=== PATIENT | female | born 1940 | race African-American/Black ===

== ENCOUNTER 2023-04-12 10:59 | Inpatient (IN) | payer OTHER, MEDICAID ==
[~2023-04-12] VITALS: Ht 144.8 cm; Wt 66.8 kg
[2023-04-12 12:11] LABS: Basophils # (auto) 0 10 ^3/uL (0-0.2); Basophils % (auto) 0.6 % (0.0-2.0); Eosinophils # (auto) 0.1 10 ^3/uL (0-0.8); Eosinophils % (auto) 1.2 % (0.0-7.0); Hematocrit 35.9 % (36.0-46.0); Hemoglobin 11.6 g/dL (12.2-16.2); Lymphocytes # (auto) 1.1 10 ^3/uL (0.4-5.4); Lymphocytes % (auto) 20.3 % (10.0-50.0); Mean Corpuscular Hgb Conc. 32.2 g/dL (32.0-36.0); Mean Corpuscular Volume 90.3 fL (80.0-100.0); Monocytes # (auto) 0.7 10 ^3/uL (0-1.3); Monocytes % (auto) 12.3 % (0.0-12.0); Neutrophils # (auto) 3.7 10 ^3/uL (1.6-8.6); Neutrophils % (auto) 65.6 % (37.0-80.0); Red Blood Cells 3.98 10^6/uL (4.0-5.20); Red Cell Distribution Width 15.1 % (11.8-14.3); White Blood Cell 5.6 10^3/uL (4.4-10.8)
[2023-04-12 12:22] LABS: Lactic Acid w/Reflex 2.8 mmol/L (0.4-2.0)
[2023-04-12 12:33] LABS: Alanine Aminotransferase 18 U/L (7-40); Albumin 4.3 g/dL (3.2-4.8); Alkaline Phosphatase 129 U/L (46-116); Anion Gap 7 (5-15); Aspartate Aminotransferase 34 U/L (13-40); BUN/Creatinine Ratio 15.4 (10.0-20.0); Blood Urea Nitrogen 14 mg/dL (9-23); CRP High Sensitivity 0.42 mg/dL (<1.0); Calcium 9.1 mg/dL (8.5-10.1); Carbon Dioxide 25 mmol/L (20-30); Chloride 107 mmol/L (98-107); Glucose 87 mg/dL (74-106); Potassium 3.9 mmol/L (3.5-5.1); Sodium 139 mmol/L (136-145)
[2023-04-12 12:34] LABS: Bilirubin, Total 0.3 mg/dL (0.2-1.0); Total Protein 7.4 g/dL (5.7-8.2)
[2023-04-12] MEDS ORDERED: VANCOMYCIN 1GM/250ML 250 ML IV ONE (13:15)
[2023-04-12] MEDS ORDERED: CLINDAMYCIN 300MG IV 50 ML IV ONE (13:15)
[2023-04-12 13:32] LABS: INR 0.98 (0.9-1.15); Partial Thromboplastin Time 36.6 SEC (24.5-34.5); Prothrombin Time 10.3 sec (9.3-11.8)
[2023-04-12 14:49] LABS: Erythrocyte Sedimentation Rate 70 mm/hr (0-20)
[2023-04-12] MEDS ORDERED: ONDANSETRON HCL 4 MG/2 ML VIAL IV PRN (16:45)
[2023-04-12] MEDS ORDERED: MORPHINE SULFATE INJ 2 MG/ml SYRG IV PRN (16:45)
[2023-04-12] MEDS ORDERED: DOCUSATE SOD 100 MG CAP PO PRN (16:45)
[2023-04-12] MEDS: PIPERACILLIN-TAZOB 3.375GM 100 ML IV SCH (18:19)
[2023-04-12] MEDS: ENOXAPARIN SOD 40 MG/0.4 ML SYRINGE SC SCH (18:20)
[2023-04-12 20:00] VITALS: RESP 18; O2SAT 98
[2023-04-13] VITALS (7 sets, daily range): BP systolic 110–129; BP diastolic 48–60; PULSE 69–80; RESP 16–20; TEMP 97.6–98.7; O2SAT 94–96
[2023-04-13] MEDS ORDERED: CHOL50007 PO (04:40)
[2023-04-13] MEDS ORDERED: FURO40TA4 PO (04:40)
[2023-04-13] MEDS ORDERED: FLAX1CAP PO (04:40)
[2023-04-13] MEDS ORDERED: DONE1TAB88 PO (04:40)
[2023-04-13] MEDS ORDERED: SIMV40TA18 PO (04:40)
[2023-04-13] MEDS ORDERED: ACET-1881 PO (04:40)
[2023-04-13] MEDS ORDERED: OMEP20TA PO (04:40)
[2023-04-13] MEDS ORDERED: POTA-228 PO (04:40)
[2023-04-13] MEDS ORDERED: LOSA50TA46 PO (04:40)
[2023-04-13] MEDS ORDERED: MULT-1018 PO (04:40)
[2023-04-13] MEDS: PIPERACILLIN-TAZOB 3.375GM 100 ML IV SCH ×5 (06:10→23:39)
[2023-04-13 06:46] LABS: Basophils # (auto) 0 10 ^3/uL (0-0.2); Basophils % (auto) 0.4 % (0.0-2.0); Eosinophils # (auto) 0.1 10 ^3/uL (0-0.8); Eosinophils % (auto) 1.6 % (0.0-7.0); Hematocrit 33.2 % (36.0-46.0); Hemoglobin 10.9 g/dL (12.2-16.2); Lymphocytes % (auto) 19.2 % (10.0-50.0); Mean Corpuscular Hemoglobin 29.1 pg (28.0-32.0); Mean Corpuscular Hgb Conc. 32.9 g/dL (32.0-36.0); Mean Corpuscular Volume 88.3 fL (80.0-100.0); Monocytes # (auto) 0.6 10 ^3/uL (0-1.3); Monocytes % (auto) 11.2 % (0.0-12.0); Neutrophils # (auto) 3.4 10 ^3/uL (1.6-8.6); Neutrophils % (auto) 67.6 % (37.0-80.0); Red Blood Cells 3.76 10^6/uL (4.0-5.20); Red Cell Distribution Width 15.3 % (11.8-14.3)
[2023-04-13 06:59] LABS: Alanine Aminotransferase 11 U/L (7-40); Albumin 3.9 g/dL (3.2-4.8); Alkaline Phosphatase 113 U/L (46-116); Anion Gap 5 (5-15); Aspartate Aminotransferase 25 U/L (13-40); BUN/Creatinine Ratio 14.3 (10.0-20.0); Blood Urea Nitrogen 13 mg/dL (9-23); Carbon Dioxide 28 mmol/L (20-30); Chloride 107 mmol/L (98-107); Cholesterol 133 mg/dL (< 200); Glucose 89 mg/dL (74-106); HDL Cholesterol 49 mg/dL (40-59); LDL Cholesterol 69 mg/dL (< 100); Potassium 3.6 mmol/L (3.5-5.1); Sodium 140 mmol/L (136-145); Triglycerides 78 mg/dL (< 150)
[2023-04-13 07:00] LABS: Bilirubin, Total 0.3 mg/dL (0.2-1.0); Total Protein 6.7 g/dL (5.7-8.2)
[2023-04-13] MEDS: LOSARTAN POTASSIUM 50 MG TAB PO SCH (10:13)
[2023-04-13] MEDS: ENOXAPARIN SOD 40 MG/0.4 ML SYRINGE SC SCH (10:14)
[2023-04-13] MEDS: ATORVASTATIN 20 MG TAB PO SCH (21:48)
[2023-04-13] MEDS: DONEPEZIL HYDROCHLORIDE 5 MG TAB PO SCH (21:48)
[2023-04-14] VITALS (7 sets, daily range): BP systolic 107–135; BP diastolic 48–57; PULSE 69–82; RESP 17–20; TEMP 97.8–99.8; O2SAT 94–98
[2023-04-14] MEDS: PIPERACILLIN-TAZOB 3.375GM 100 ML IV SCH ×4 (05:05→23:51)
[2023-04-14] MEDS: CLOPIDOGREL BISULFATE 75 MG TAB PO SCH (09:43)
[2023-04-14] MEDS: LOSARTAN POTASSIUM 50 MG TAB PO SCH (09:44)
[2023-04-14] MEDS: ENOXAPARIN SOD 40 MG/0.4 ML SYRINGE SC SCH (09:52)
[2023-04-14] MEDS: DONEPEZIL HYDROCHLORIDE 5 MG TAB PO SCH (21:53)
[2023-04-14] MEDS: ATORVASTATIN 20 MG TAB PO SCH (21:53)
[2023-04-15] VITALS (7 sets, daily range): BP systolic 115–122; BP diastolic 37–71; PULSE 66–79; RESP 16–19; TEMP 98.5–99.8; O2SAT 95–97
[2023-04-15] MEDS: PIPERACILLIN-TAZOB 3.375GM 100 ML IV SCH ×4 (05:48→23:56)
[2023-04-15 07:06] LABS: Basophils # (auto) 0 10 ^3/uL (0-0.2); Basophils % (auto) 0.8 % (0.0-2.0); Eosinophils # (auto) 0.1 10 ^3/uL (0-0.8); Eosinophils % (auto) 2.6 % (0.0-7.0); Hematocrit 30.7 % (36.0-46.0); Hemoglobin 10.3 g/dL (12.2-16.2); Lymphocytes # (auto) 1.1 10 ^3/uL (0.4-5.4); Lymphocytes % (auto) 24.9 % (10.0-50.0); Mean Corpuscular Hemoglobin 29.5 pg (28.0-32.0); Mean Corpuscular Hgb Conc. 33.6 g/dL (32.0-36.0); Monocytes # (auto) 0.6 10 ^3/uL (0-1.3); Monocytes % (auto) 14.3 % (0.0-12.0); Neutrophils # (auto) 2.5 10 ^3/uL (1.6-8.6); Neutrophils % (auto) 57.4 % (37.0-80.0); Nucleated Red Blood Cells % 0.2 %; Red Blood Cells 3.49 10^6/uL (4.0-5.20); Red Cell Distribution Width 15.1 % (11.8-14.3); White Blood Cell 4.4 10^3/uL (4.4-10.8)
[2023-04-15 08:49] LABS: Erythrocyte Sedimentation Rate 70 mm/hr (0-20)
[2023-04-15 09:21] LABS: Hepatitis B Surface Antigen Negative (Negative)
[2023-04-15 09:42] LABS: Hepatitis C Antibody Negative (Negative)
[2023-04-15] MEDS: LOSARTAN POTASSIUM 50 MG TAB PO SCH (10:19)
[2023-04-15] MEDS: ENOXAPARIN SOD 40 MG/0.4 ML SYRINGE SC SCH (10:19)
[2023-04-15] MEDS: CLOPIDOGREL BISULFATE 75 MG TAB PO SCH (10:19)
[2023-04-15] MEDS: ATORVASTATIN 20 MG TAB PO SCH (21:41)
[2023-04-15] MEDS: DONEPEZIL HYDROCHLORIDE 5 MG TAB PO SCH (21:41)
[2023-04-16 05:00] VITALS: BP 137/49; PULSE 73; RESP 17; TEMP 98.4; O2SAT 98
[2023-04-16] MEDS: PIPERACILLIN-TAZOB 3.375GM 100 ML IV SCH (05:11)
[2023-04-16 08:00] VITALS: PULSE 70; RESP 18; O2SAT 99
[2023-04-16 08:50] VITALS: BP 126/51; PULSE 70; RESP 18; TEMP 98.1; O2SAT 99
[2023-04-16] MEDS: ENOXAPARIN SOD 40 MG/0.4 ML SYRINGE SC SCH (09:46)
[2023-04-16] MEDS: LOSARTAN POTASSIUM 50 MG TAB PO SCH (09:47)
[2023-04-16] MEDS: CLOPIDOGREL BISULFATE 75 MG TAB PO SCH (09:47)
[2023-04-16] MEDS ORDERED: AUG875T PO (10:24)
[2023-04-16] MEDS ORDERED: ASPI81TA28 PO (10:24)
[2023-04-16] MEDS ORDERED: SIMV40TA18 PO (10:24)
[2023-04-16 12:42] VITALS: BP 126/51; PULSE 70; RESP 18; TEMP 98.1; O2SAT 99
[2023-04-16 12:50] VITALS: BP 132/55; PULSE 76; RESP 18; TEMP 97.2; O2SAT 99
== END 2023-04-16 16:08 | disposition home health service (06) | DRG 603 ==
LOC: ER 10:59 → OVERFLOW 17:01 → WEST WING 04-13 02:39
PROVIDERS: ADMIT Nurse Practitioner Family; ATTEND Hospitalist
DX: L03.115 Cellulitis of right lower limb (principal); L97.912 Non-pressure chronic ulcer of unspecified part of right lower leg with fat layer exposed; B95.61 Methicillin susceptible Staphylococcus aureus infection as the cause of diseases classified elsewhere; I87.8 Other specified disorders of veins; E78.5 Hyperlipidemia, unspecified; F03.90 Unspecified dementia, unspecified severity, without behavioral disturbance, psychotic disturbance, mood disturbance, and anxiety; I12.9 Hypertensive chronic kidney disease with stage 1 through stage 4 chronic kidney disease, or unspecified chronic kidney disease; N18.9 Chronic kidney disease, unspecified; Z88.8 Allergy status to other drugs, medicaments and biological substances; Z88.1 Allergy status to other antibiotic agents; Z88.6 Allergy status to analgesic agent; K21.9 Gastro-esophageal reflux disease without esophagitis
CPT/HCPCS: 36415; 80053; 80061; 83605; 85025; 85610; 85652; 85730; 86141; 86803; 87040; 87077; 87186; 87205; 87340; 93926; 93971; 96365; 96368; 97110; 97116; 97163; 97530; G0378; J2405; J2543; J3490